=== PATIENT | male | born 1950 | race Caucasian/White ===

== ENCOUNTER 2016-09-16 14:45 | Outpatient (CLI) | payer SELFPAY ==
[2016-09-16 15:38] LABS: eGFR (African) > 60; eGFR (Non-African) > 60
== END 2016-09-16 14:46 ==
LOC: LAB 14:45
PROVIDERS: ATTEND Family Medicine
DX: G62.9 Polyneuropathy, unspecified (principal); Z83.3 Family history of diabetes mellitus; Z51.81 Encounter for therapeutic drug level monitoring
CPT/HCPCS: 36415; 80053; 83036